=== PATIENT | female | born 1955 | race Caucasian/White ===

== ENCOUNTER 2016-09-05 08:06 | Day surgery (SDC) | payer OTHER ==
[2016-08-14 14:23] VITALS: BMI 38.0
--- NOTE | 2016-09-04 14:42 | HISTORY & PHYSICAL EXAMINATION ---
DATE OF ADMISSION: 09/05/2016 REASON FOR HISTORY AND PHYSICAL: Bronchoscopy with EBUS REASON FOR BRONCHOSCOPY: Increased cough and abnormal CT imaging with multiple enlarged nodes. HISTORY OF PRESENT ILLNESS: The patient is a 61-year-old female who we first saw in the office on 08/02/2016. She was referred to our office due to some difficulty breathing. She states that she has trouble taking her breath and sometimes she states that she has to think about taking a deep breath and she states that initially they thought was her heart and she did have a workup including an EKG, an event monitor and echocardiogram done and nothing was abnormal. She did have the CT of the chest, which showed the multiple enlarged lymph nodes with the radiologist's interpretation. Interpretation of differential diagnosis of granulomatous disease such as sarcoid versus a lymphoproliferative disorders such as lymphoma with also possibility of inflammatory/infectious process with recommendation for followup CT or tissue sampling. Lymph nodes that were mentioned by radiologist include a right peritracheal measuring 1.4 x 1.8 cm, a subcarinal measuring 5.3 x 3.0 cm and a right hilar measuring 2.9 x 2.8 cm as well as several tiny nodules along with interest based or interspersed ground-glass opacities and patchy opacities throughout the lungs bilaterally with the right more extensive than the left. The patient notes that she does have increased shortness of breath. She is having increased cough and congestion. She states that she is getting green mucus up. With the cough, she states that she did have a cold in April and was on prednisone, but no antibiotic. She states that the prednisone did seem to help, but the symptoms came back after she finished the medication. She does have some wheezing which worsens when she exerts herself. She has no pleuritic chest pain. No chest discomfort. She states that she was doing well up until last year that is where her breathing problem seem to start. The patient is a lifelong nonsmoker, nondrinker. She does have a longstanding history of exposure to secondhand smoke. 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 She has no history of exposure to tuberculosis. She has had no fever or chills that she is aware of. No sweats, no weight changes. Around the time that she started having breathing problem, she was started on Coreg for some tachycardia and slightly elevated blood pressure. She states that she had no breathing problems prior to going on this medication. She does have some nocturnal symptoms where she states she feels like she cannot breathe and it will wake her up. She does have snoring. She does have some witnessed apneic episodes. She does have a sleep study scheduled. She does get tachycardic. She has palpitations. She does have known valvular heart disease. She did have an echo done. She does not have any leg swelling that she is aware of. She has no significant GI difficulties. No indigestion or heartburn. She has no difficulty swallowing. She has had no problems with aspiration or things going down wrong. She has not had any changes in her bowels or changes in her voiding. She states that she does have significant sinus disease and she cannot breathe through her nose a lot of times. PAST SURGICAL HISTORY: Includes aortic stenosis, aortic regurg. PAST SURGICAL HISTORY: She has had a tubal ligation. FAMILY HISTORY: Mother breast cancer, niece had melanoma. Her father had cardiac history. SOCIAL HISTORY: The patient is a lifelong nonsmoker, no alcohol use. She does have exposure to secondhand smoke. 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 CURRENT MEDICATIONS: Include atorvastatin 10 mg daily and carvedilol 20 mg daily. ALLERGIES: The patient has no known drug allergies. REVIEW OF SYSTEMS: As above, otherwise unremarkable. PHYSICAL EXAMINATION: GENERAL: The patient is a well-nourished, well developed white female, in no acute distress. She is alert and oriented x3. Mood is good. Affect is good. VITAL SIGNS: Temp 98 degrees, pulse 81, respirations 20, blood pressure 132/70, pulse ox is 93% on room air, and weight is 209 pounds. Peak flows are 350, 370 and 350. HEENT: Normocephalic, atraumatic. Pupils equal, round and reactive to light and accommodation. Extraocular movements are intact. [place] moist gingival and buccal mucosa. NECK: Supple. No mass. No adenopathy. No bruit. CHEST: Diminished. She does have a few expiratory wheeze. No rale or rhonchi noted. CARDIOVASCULAR: Regular rate and rhythm. No murmurs, gallops or rubs. ABDOMEN: Bowel sounds are present. Abdomen soft, nontender. No guarding, rigidity or organomegaly. Abdomen is obese. EXTREMITIES: No erythema or edema. No cyanosis or clubbing noted. NEUROLOGIC: Cranial nerves II through XII are intact. No focal deficit noted. IMAGING DATA: Testes CT as noted above. Spirometry shows a forced vital capacity of 2.90, FEV1 of 2.25, which are 98%-99% of predicted, ratio of 100%. IMPRESSION: This is a 61-year-old female who comes in today due to increased shortness of breath, productive cough and abnormality on the CT scan showing multiple mediastinal hilar lymphadenopathy with enlarged right peritrachea measured 1.4 x 1.8 cm, subcarinal measuring 5.3 x 3.0 cm and right hilar measuring 2.9 x 2.8 cm as well as multiple small nodules and interspersed ground-glass changes throughout both lung casey. At this point, I think would be beneficial to get tissue sampling of these nodules. Will get patient set up for EBUS and bronchoscopy. Procedure was discussed with the patient. She is agreeable to having this done. I would also like to get a CAT scan of her sinuses due to her being able to breathe through her nose. I think that the patient should have complete pulmonary function testing done and a sleep study which is already scheduled. The patient will have appropriate blood work. She will be followed up after the procedure. Patient seen and reviewed and case agreed with MTDD
[~2016-09-05] VITALS: Ht 154.9 cm; Wt 90.9 kg
[~2016-09-05 08:06] MED LIST: ATOR10TA82 PO; CARV20CA PO
[2016-09-05 08:19] VITALS: BP 112/58; PULSE 66; TEMP 36.6; O2SAT 95; Ht 154.9 cm; Wt 90.9 kg
[2016-09-05] MEDS ORDERED: ATROPINE SULFATE 0.1 MG/ML 5ML SYR IV PRN (09:45)
[2016-09-05] MEDS ORDERED: FENTANYL CITRATE INJ 50 MCG/1 ML 2 ML VIAL IV PRN (09:45)
[2016-09-05] MEDS ORDERED: LABETALOL HCL IV 5 MG/ML 20ML IV PRN (09:45)
[2016-09-05] MEDS ORDERED: MEPERIDINE HCL 25 MG/ML CARP IV PRN (09:45)
[2016-09-05] MEDS ORDERED: EpHEDrine SULFATE INJ 50 MG/ML AMP IV PRN (09:45)
[2016-09-05] MEDS ORDERED: ONDANSETRON INJ 2 MG/ML 2 ML VIAL IV PRN (09:45)
[2016-09-05] MEDS ORDERED: HYDROmorphone INJ 1 MG/ML SYR IV PRN (09:45)
[2016-09-05] MEDS ORDERED: ROCURONIUM BROMIDE 10 MG/ML 5 ML VIAL ONE (10:01)
[2016-09-05] MEDS ORDERED: DEXAMETHASONE SOD INJ 4 MG/ML VIAL ONE (10:01)
[2016-09-05] MEDS ORDERED: LIDOCAINE HCL 2% 2 ML VIAL (20MG/ML) ONE (10:01)
[2016-09-05] MEDS ORDERED: ONDANSETRON INJ 2 MG/ML 2 ML VIAL ONE (10:01)
[2016-09-05] MEDS ORDERED: GLYCOPYRROLATE INJ 0.2 MG/ML VIAL ONE (10:01)
[2016-09-05] MEDS ORDERED: PROPOFOL IV EMULSION 10 MG/ML 20 ML VIAL IV ONE (10:01)
[2016-09-05] MEDS ORDERED: NEOSTIGMINE METHYLSULFATE 5 MG/5 ML SYR ONE (10:01)
[2016-09-05] MEDS ORDERED: FENTANYL CITRATE INJ 50 MCG/1 ML 2 ML VIAL ONE (10:01)
[2016-09-05] MEDS ORDERED: MIDAZOLAM HCL 1 MG/ML 2ML VIAL ONE (10:01)
--- NOTE | 2016-09-05 10:18 | History & Physical Bridge Note ---
H&P Re-Evaluation Bridge Note: I have examined the patient, reviewed the History & Physical and in the interval since the performance of the History & Physical I have noted the following changes of clinical significance: No changes noted
[2016-09-05] MEDS ORDERED: D5W AND NSS 1,000 ML IV SCH (10:30)
[2016-09-05] MEDS ORDERED: NURSING VERBAL MED ORDER ONE (10:30)
[2016-09-05] MEDS ORDERED: PHENYLEPHRINE HCL INJ 10 MG/ML VIAL ONE (11:12)
[2016-09-05] MEDS ORDERED: D5W AND 1/2NSS 1,000 ML IV SCH (11:15)
[2016-09-05] MEDS ORDERED: EpHEDrine SULFATE 50MG/5ML SYR ONE (11:29)
--- NOTE | 2016-09-05 12:18 | Discharge Instructions ---
Discharge Instructions Date of Service September 05, 2016. Admission Reason for Admission: Pulmonary Nodule, Lymphenopathy Discharge Discharge Diagnosis / Problem: Pulmonary Granulation tissue Discharge Goals Goal(s): Diagnostic testing Activity Recommendations Activity Limitations: resume your previous activity . Instructions / Follow-Up Instructions / Follow-Up Follow-Up in the [facility] Current Hospital Diet Patient's current hospital diet: Discharge Diet Recommended Diet: Regular Diet Procedures Procedures Performed: Endobronchial Ultrasound, Fine Needle Aspiration 7, Flexible Broncoscopy, Brochial Aveolar Levage; left upper lobe/right middle lobe Pending Studies Studies pending at discharge: no Medical Emergencies . Who to Call and When: Medical Emergencies: If at any time you feel your situation is an emergency, please call 911 immediately. . Non-Emergent Contact Non-Emergency issues call your: Fixture Maker Call Non-Emergent contact if: temperature is above 101.5 . . "Provider Documentation" section prepared by Praful Gore. . VTE Core Measure Inpt VTE Proph given/why not?: Treatment not indicated
--- NOTE | 2016-09-05 12:21 | Bronchoscopy Procedure Note ---
Bronchoscopy Procedure Note Procedure: Flexible-Bronchoscopy, EBUS, BAL (RML & BHAVIN) Consent: Obtained through the patient placed into the chart Preprocedural diagnosis: mediastinal lymphadenitis Postprocedural diagnosis: mediastinal granulation tissue Analgesia: GETA Sedation: GETA Procedure: The Olympus video bronchoscope and EBUS scope were used for this procedure Initially the flexible bronchoscope was used for evaluation of the airways. The ET tube was notably 6cm above the level of the perla. Trachea: Visualized portion of the trachea was anatomically within normal limits Perla: Anatomically within normal limits Right bronchial tree: Right mainstem bronchus: Anatomically within normal limits Right upper lobe: Anatomically within normal limits Bronchus intermedius: Anatomically within normal limits Right middle lobe: Anatomically within normal limits Right lower lobe: Anatomically within normal limits Findings: diffuse mucosal changes noted througth-out Left bronchial tree: Left mainstem bronchus: Anatomically within normal limits Left upper lobe: Anatomically within normal limits Lingula: Anatomically within normal limits Left lower lobe: Anatomically within normal limits Findings: diffuse mucosal changes noted througth-out EBUS/PARAG: Tbbx [place] Stations: 7: # of passes 5 R4: # of passes passes 1 granulation tissue Complications: None Follow-up: patient to be d/c and followed up in the [facility]
[2016-09-05 13:00] VITALS: BP 108/46; PULSE 57; TEMP 36.5; O2SAT 92
[2016-09-05 13:30] VITALS: BP 90/42; PULSE 55; O2SAT 93
--- NOTE | 2016-09-05 13:44 | Anesthesiology Progress Note ---
Anesthesia Post Op Note Date & Time September 05, 2016 at 13:44 Vital Signs Pain Intensity: 0 Vital Signs Past 12 Hours Date Time Temp Pulse Resp B/P Pulse Ox O2 Delivery O2 Flow Rate FiO2 09/05/16 13:30 55 18 90/42 93 Nasal Cannula 3 09/05/16 13:00 36.5 57 16 108/46 92 Nasal Cannula 3 09/05/16 12:44 36.4 56 16 99/52 92 Nasal Cannula 2 09/05/16 12:41 91/44 09/05/16 12:38 52 19 09/05/16 12:38 51 19 91 09/05/16 12:36 106/60 09/05/16 12:33 53 12 09/05/16 12:33 53 12 94 09/05/16 12:31 94/59 09/05/16 12:28 55 19 09/05/16 12:28 55 19 90 09/05/16 12:26 94/57 09/05/16 12:23 54 21 90 09/05/16 12:23 54 21 09/05/16 12:21 107/61 09/05/16 12:18 66 25 09/05/16 12:18 66 25 85 09/05/16 12:17 53 20 89 09/05/16 12:17 54 20 09/05/16 12:16 121/71 09/05/16 12:12 53 18 94 09/05/16 12:12 53 18 09/05/16 12:11 102/46 09/05/16 12:07 55 17 96 09/05/16 12:07 55 17 09/05/16 12:06 106/53 09/05/16 12:03 101/48 09/05/16 12:02 59 18 95 09/05/16 12:02 36.1 57 16 101/48 95 Mask 10 09/05/16 12:02 58 18 09/05/16 08:19 36.6 66 20 112/58 95 Room Air Notes Mental Status: alert / awake / arousable, participated in evaluation Pt Amnestic to Procedure: Yes Nausea / Vomiting: adequately controlled Pain: adequately controlled Airway Patency, RR, SpO2: stable & adequate BP & HR: stable & adequate Hydration State: stable & adequate Anesthetic Complications: no major complications apparent
[2016-09-05 14:00] VITALS: BP 99/54; PULSE 59; TEMP 36.1; O2SAT 96
== END 2016-09-05 14:32 | disposition home or self-care (01) ==
LOC: C.ACU 08:06
PROVIDERS: ATTEND Internal Medicine Critical Care Medicine
DX: I88.8 Other nonspecific lymphadenitis (principal); R06.02 Shortness of breath; I35.0 Nonrheumatic aortic (valve) stenosis; I35.1 Nonrheumatic aortic (valve) insufficiency; Z98.51 Tubal ligation status; Z83.3 Family history of diabetes mellitus; Z82.49 Family history of ischemic heart disease and other diseases of the circulatory system; I10 Essential (primary) hypertension; E78.00 Pure hypercholesterolemia, unspecified; E66.9 Obesity, unspecified; E78.5 Hyperlipidemia, unspecified; R05 Cough; Z77.22 Contact with and (suspected) exposure to environmental tobacco smoke (acute) (chronic)